=== PATIENT | female | born 1990 | race Caucasian/White ===

== ENCOUNTER 2016-12-17 12:21 | Emergency (ER) | payer OTHER ==
[2016-12-17] MEDS ORDERED: HYDROcod/ACETAM 5/325 MG TABLET PO STA (14:52)
[2016-12-17] MEDS ORDERED: HYDROcod/ACETAM 5/325 MG TABLET ONE (14:55)
== END 2016-12-17 15:01 | disposition home or self-care (01) ==
DX: S52.122A Displaced fracture of head of left radius, initial encounter for closed fracture (principal); V00.311A Fall from snowboard, initial encounter; Y93.23 Activity, snow (alpine) (downhill) skiing, snowboarding, sledding, tobogganing and snow tubing; Y92.39 Other specified sports and athletic area as the place of occurrence of the external cause
CPT/HCPCS: 29105; 73070; 99283; A9270

== ENCOUNTER 2018-02-15 19:35 | Emergency (ER) | payer OTHER ==
[2018-02-15] MEDS ORDERED: traZODone 50 MG TABLET PO STA (20:21)
--- NOTE | 2018-02-15 20:24 | ED Physician Documentation ---
PD HPI MHE - Stated complaint Stated Complaint: SI - Chief complaint Chief Complaint: MHE - History obtained from History obtained from: Patient, Family, EMS - History of Present Illness Primary symptom: Suicidal ideation (states chronic and unchanged) Timing - onset: Chronic Pain level max: 0 Pain level now: 0 Similar symptoms before: Diagnosis (bipolar, depression. States hasn't seen a counselor for 1 month. Is still taking her psych meds as prescribed.) Recently seen: Not recently seen - Additional information Additional information: States she is not currently suicidal and has no plan. Review of Systems Ten Systems: 10 systems reviewed and negative Constitutional: denies: Fever, Chills Ears: denies: Ear pain Nose: denies: Rhinorrhea / runny nose, Congestion Throat: denies: Sore throat Cardiac: denies: Chest pain / pressure Respiratory: denies: Cough GI: denies: Nausea, Vomiting, Diarrhea PD PAST MEDICAL HISTORY - Past Surgical History Past Surgical History: No - Present Medications Home Medications: Ambulatory Orders Medication Instructions Recorded Confirmed Dextroamphetamine/Amphetamine 20 mg BID 12/17/16 12/17/16 [Adderall 20 mg Tablet] Guanfacine HCl [Guanfacine HCl ER] 3 mg PO DAILY 12/17/16 12/17/16 HYDROcod/ACETAM 5/325 [[place] 5/325] 1 ea PO Q6H PRN #10 tablet 12/17/16 Levothyroxine Sodium [Synthroid] 150 mcg PO DAILY 12/17/16 12/17/16 Sertraline [Zoloft] 12.5 mg DAILY 12/17/16 12/17/16 buPROPion [Wellbutrin Sr] 150 mg PO DAILY 12/17/16 12/17/16 traZODone [Desyrel] 100 mg DAILY 12/17/16 12/17/16 - Allergies Allergies/Adverse Reactions: Allergies Allergy/AdvReac Type Severity Reaction Status Date / Time No Known Drug Allergies Allergy Verified 12/17/16 12:36 - Social History Does the pt smoke?: No Smoking Status: Never smoker Does the pt drink ETOH?: No Does the pt have substance abuse?: No - Immunizations Immunizations are current?: Yes PD ED PE NORMAL - Vitals Vital signs reviewed: Yes - General General: Alert and oriented X 3, No acute distress, Well developed/nourished - HEENT HEENT: PERRL, Moist mucous membranes, Pharynx benign - Neck Neck: Supple, no meningeal sign - Cardiac Cardiac: RRR, Strong equal pulses - Respiratory Respiratory: No respiratory distress, Clear bilaterally - Abdomen Abdomen: Soft, Non tender, Non distended - Back Back: No CVA TTP, No spinal TTP - Derm Derm: Warm and dry, No rash - Extremities Extremities: No edema, No calf tenderness / cord - Neuro Neuro: Alert and oriented X 3 - Psych Psych: Normal mood, Normal affect Results - Vitals Vitals: Vital Signs - 24 hr 02/15/18 02/15/18 19:40 22:59 Temperature 37.5 C Heart Rate 104 H 68 Respiratory 16 18 Rate Blood Pressure 125/72 101/65 O2 Saturation 93 99 Oxygen O2 Source Room air - Labs Labs: Laboratory Tests 02/15/18 02/15/18 20:22 20:22 WBC 7.7 RBC 4.37 Hgb 12.7 Hct 37.3 MCV 85.5 MCH 29.0 MCHC 34.0 RDW 14.2 Plt Count 263 MPV 7.9 Neut # 4.8 Lymph # 2.4 [place] # 0.4 Eos # 0.0 Baso # 0.0 Absolute Nucleated RBC 0.00 Nucleated RBC % 0.1 Sodium 134 L Potassium 3.2 L Chloride 102 Carbon Dioxide 24 Anion Gap 8.0 BUN 11 Creatinine 0.7 Estimated GFR (MDRD) 101 Glucose 112 H Calcium 8.8 Total Bilirubin 0.9 AST 16 ALT 14 Alkaline Phosphatase 37 L Total Protein 7.9 Albumin 4.9 Globulin 3.0 Albumin/Globulin Ratio 1.6 Lipase 19 L Salicylates < 6.0 Acetaminophen < 10 L Ethyl Alcohol < 5.0 PD MEDICAL DECISION MAKING - ED course Complexity details: reviewed results, re-evaluated patient, considered differential, d/w patient, d/w family ED course: Patient is a 27-year-old female who presents to the emergency department with suicidal thoughts today. She states this is chronic and unchanged from her baseline. Does see a counselor and is currently taking her medications as prescribed. Her came to the emergency department and is willing to take her home and monitor her. She does not have a plan and is able to contract for safety. She will follow-up with her doctor tomorrow. Crisis line information given. She did not make any specific suicidal threats today. Patient and family counseled regarding signs and symptoms for which I believe and urgent re-evaluation would be necessary. Patient with good understanding of and agreement to plan and is comfortable going home at this time No criteria for involuntary hold This document was made in part using voice recognition software. While efforts are made to proofread this document, sound alike and grammatical errors may occur. Departure - Departure Disposition: 01 Home, Self Care Clinical Impression: Depression Qualifiers: Depression Type: unspecified Qualified Code(s): F32.9 - Major depressive disorder, single episode, unspecified Condition: Good Instructions: ED Depression Follow-Up: NATHANIEL QUEEN MD [Primary Care Provider] - Tomorrow Comments: Crisis Line and is available to talk to someone [email or web address] is also available to chat with someone online if you prefer. There are also many resources on this website and apps for your phone to help with your mental health You can also text the word START to [phone] to chat with someome via text. You need to follow up with your doctor tomorrow to speak about a new therapist for you. Return if you worsen. Discharge Date/Time: 02/15/18 23:30
[2018-02-15 20:27] LABS: BASOPHILS % (AUTO) 0.2 %; EOSINOPHILS % (AUTO) 0.6 %; HGB - HEMOGLOBIN 12.7 g/dL (12.0-16.0); LYMPHOCYTES # (AUTO) 2.4 10^3/uL (1.5-3.5); LYMPHOCYTES % (AUTO) 31.5 %; MEAN CORPUSCULAR VOLUME 85.5 fL (81.0-99.0); MEAN PLATELET VOLUME 7.9 fL (7.9-10.8); MONOCYTES # (AUTO) 0.4 10^3/uL (0.0-1.0); MONOCYTES % (AUTO) 5.2 %; NEUTROPHILS # (AUTO) 4.8 10^3/uL (1.5-6.6); NEUTROPHILS % (AUTO) 62.5 %; PLT - PLATELET COUNT 263 10^3/uL (130-450); RED BLOOD COUNT 4.37 10^6/uL (4.20-5.40); RED CELL DISTRIBUTION WIDTH 14.2 % (12.0-15.0); WHITE BLOOD COUNT 7.7 x10^3/uL (4.8-10.8)
[2018-02-15 20:42] LABS: ALBUMIN 4.9 g/dL (3.2-5.5); ALBUMIN/GLOBULIN RATIO 1.6 (1.0-2.2); ALKALINE PHOSPHATASE 37 IU/L (42-121); ALT ALANINE AMINOTRANSFERASE 14 IU/L (10-60); AST ASPARTATE AMINOTRANSFERASE 16 IU/L (10-42); BILIRUBIN,TOTAL 0.9 mg/dL (0.2-1.0); BUN - BLOOD UREA NITROGEN 11 mg/dL (6-20); CALCIUM 8.8 mg/dL (8.5-10.3); CARBON DIOXIDE - CO2 24 mmol/L (21-32); CHLORIDE 102 mmol/L (101-111); CREATININE 0.7 mg/dL (0.4-1.0); GFR - MDRD 101 (>89); GLUCOSE 112 mg/dL (70-100); LIPASE 19 U/L (22-51); SALICYLATE < 6.0 mg/dL; SODIUM 134 mmol/L (135-145); TOTAL PROTEIN 7.9 g/dL (6.7-8.2)
[2018-02-15 20:44] LABS: ACETAMINOPHEN < 10 ug/mL (10-30)
[2018-02-15 23:00] VITALS: BP 101/65
== END 2018-02-15 23:30 | disposition home or self-care (01) ==
LOC: EDUNIT# → EDBD → ED 19:35
DX: F32.9 Major depressive disorder, single episode, unspecified (principal); R45.851 Suicidal ideations
CPT/HCPCS: 36415; 80053; 80307; 80320; 80329; 83690; 85025; 99283; A9270